=== PATIENT | male | born 1965 ===

== ENCOUNTER 2025-03-25 10:00 | Day surgery (SDC) | payer OTHER ==
[2025-03-17 12:22] VITALS: BP 120/84
[~2025-03-25] VITALS: Ht 175.3 cm; Wt 108.0 kg
[~2025-03-25 10:00] MED LIST: ATACAND HCT 161 EACH PO; LIPITOR20 MG PO; METFORMIN HCL1000 M2 PO
[2025-03-25] MEDS ORDERED: DIPHENHYDRAMINE HCL 50 MG/ML VIAL 1ML ONE (13:22)
[2025-03-25] MEDS ORDERED: CEFAZOLIN SODIUM 1,000 MG VIAL IV ONE (15:00)
[2025-03-25] MEDS ORDERED: SUGAMMADEX SODIUM 200 MG/2 ML VIAL IV ONE (15:31)
== END 2025-03-25 17:30 | disposition home or self-care (01) ==
LOC: CIR.AMB 10:00
PROVIDERS: ATTEND Surgery
DX: K43.0 Incisional hernia with obstruction, without gangrene (principal)
CPT/HCPCS: 49594; C1781